=== PATIENT | male | born 1985 | race Caucasian/White ===

== ENCOUNTER 2017-05-27 09:05 | Emergency (ER) | payer BC ==
[~2017-05-27] VITALS: Ht 172.7 cm; Wt 71.5 kg
[~2017-05-27 09:05] MED LIST: AMOX500C3 PO
[2017-05-27 09:11] VITALS: TEMP 36.6; Ht 172.7 cm; Wt 71.5 kg
[2017-05-27] MEDS ORDERED: SODIUM CHLORIDE 0.9% 1000ML 1,000 ML IV STA (09:28)
--- NOTE | 2017-05-27 09:44 | EMERGENCY ROOM VISIT NOTE ---
History First contact with patient: 09:16 Chief Complaint: DIARRHEA Stated Complaint: STOMACH CRAMPS, CHILLS, DIARRHEA History of Present Illness The patient is a 32 year old male who presents to the Emergency Room with complaints of diarrhea and abdominal cramps that started 3 days ago. Patient states initially he had flulike symptoms with chills and shakes, body aches, acute onset of diarrhea. He states diarrhea was initially watery and 2-3 times an hour. He had one episode of vomiting. He states he has been doing better since yesterday with 3-4 episodes of diarrhea per day and it has become more formed. He in fact states that he has been feeling much better since yesterday. Today he had 2 episodes of diarrhea with some frothy pink in it, he was concerned this might be blood, which is what prompted him to come to the ER today. He denies any gross blood in the stool. Patient states he ate out twice on Thursday for lunch and dinner, had ham and shrimp. He denies any recent out of the country travel, drinking unclean water, or recent antibiotics. No known sick contacts. He denies chest pain, shortness of breath , back pain, abdominal pain, dizziness or passing out, dysuria or hematuria. Abdominal cramping only with bowel movements, otherwise no abdominal discomfort. Review of Systems A complete 10 point review of systems was reviewed with the patient with pertinent positives and negatives as per history of present illness. All else were negative. Past Medical/Surgical History Medical Problems: (1) No Known Active Medical Problems Social History Smoking Status: Never Smoker Current/Historical Medications No Active Prescriptions or Reported Meds Allergies Coded Allergies: No Known Allergies (Unverified , 05/27/17) Physical Exam Vital Signs Date Time Temp Pulse Resp B/P (MAP) Pulse Ox O2 Delivery O2 Flow Rate FiO2 05/27/17 11:19 51 123/79 98 05/27/17 10:41 52 117/78 98 05/27/17 09:11 36.6 66 18 128/87 98 Room Air Physical Exam CONSTITUTIONAL: No acute distress. Mildly dehydrated. Well appearing and well nourished. Alert and oriented X 4 with normal affect. HEENT: Normocephalic, atraumatic. Pupils equal, round and reactive to light, EOMI. TMs normal. Pharynx normal. Dry mucous membranes. NECK: Supple, full active range of motion without discomfort. RESPIRATORY: Clear to auscultation bilaterally with no wheezing, crackles, rhonchi or stridor. Equal expansion bilaterally. CARDIOVASCULAR: Regular rate and rhythm with no murmurs, rubs or gallops. Normal peripheral perfusion. No edema. GASTROINTESTINAL: Soft, nontender, nondistended. Bowel sounds present in all quadrants. MUSCULOSKELETAL: Full range of motion of all joints without discomfort. INTEGUMENTARY: No rash or other significant dermatologic conditions noted. NEUROLOGIC: Cranial nerves II-XII grossly intact. No focal neurologic deficits noted. Medical Decision & Procedures Laboratory Results 05/27/17 09:20 Red Blood Count 4.99, Mean Corpuscular Volume 87.4, Mean Corpuscular Hemoglobin 30.7, Mean Corpuscular Hemoglobin Concent 35.1, Mean Platelet Volume 9.1, Neutrophils (%) (Auto) 58.0, Lymphocytes (%) (Auto) 22.1, Monocytes (%) (Auto) 16.4, Eosinophils (%) (Auto) 2.9, Basophils (%) (Auto) 0.5, Neutrophils # (Auto ) 4.63, Lymphocytes # (Auto) 1.76, Monocytes # (Auto) 1.31, Eosinophils # (Auto ) 0.23, Basophils # (Auto) 0.04 05/27/17 09:20 Test 05/27/17 09:20 05/27/17 09:55 White Blood Count 7.98 K/uL (4.8-10.8) Red Blood Count 4.99 M/uL (4.7-6.1) Hemoglobin 15.3 g/dL (14.0-18.0) Hematocrit 43.6 % (42-52) Mean Corpuscular Volume 87.4 fL (80-100) Mean Corpuscular Hemoglobin 30.7 pg (25-34) Mean Corpuscular Hemoglobin Concent 35.1 g/dl (32-36) Platelet Count 209 K/uL (130-400) Mean Platelet Volume 9.1 fL (7.4-10.4) Neutrophils (%) (Auto) 58.0 % Lymphocytes (%) (Auto) 22.1 % Monocytes (%) (Auto) 16.4 % Eosinophils (%) (Auto) 2.9 % Basophils (%) (Auto) 0.5 % Neutrophils # (Auto) 4.63 K/uL (1.4-6.5) Lymphocytes # (Auto) 1.76 K/uL (1.2-3.4) Monocytes # (Auto) 1.31 K/uL (0.11-0.59) Eosinophils # (Auto) 0.23 K/uL (0-0.5) Basophils # (Auto) 0.04 K/uL (0-0.2) RDW Standard Deviation 39.9 fL (36.4-46.3) RDW Coefficient of Variation 12.4 % (11.5-14.5) Immature Granulocyte % (Auto) 0.1 % Immature Granulocyte # (Auto) 0.01 K/uL (0.00-0.02) Anion Gap 5.0 mmol/L (3-11) Est Creatinine Clear Calc Drug Dose 92.4 ml/min Estimated GFR () 101.7 Estimated GFR (Non- 87.7 BUN/Creatinine Ratio 9.8 (10-20) Calcium Level 9.2 mg/dl (8.5-10.1) Total Bilirubin 0.4 mg/dl (0.2-1) Direct Bilirubin 0.1 mg/dl (0-0.2) Aspartate Amino Transf (AST/SGOT) 18 U/L (15-37) Alanine Aminotransferase (ALT/SGPT) 28 U/L (12-78) Alkaline Phosphatase 61 U/L (45-117) Total Protein 7.2 gm/dl (6.4-8.2) Albumin 4.0 gm/dl (3.4-5.0) Lipase 196 U/L (73-393) Urine Color DK YELLOW Urine Appearance CLEAR (CLEAR) Urine pH 6.5 (4.5-7.5) Urine Specific [place] 1.026 (1.000-1.030) Urine Protein NEG (NEG) Urine Glucose (UA) NEG (NEG) Urine Ketones NEG (NEG) Urine Occult Blood NEG (NEG) Urine Nitrite NEG (NEG) Urine Bilirubin NEG (NEG) Urine Urobilinogen NEG (NEG) Urine Leukocyte Esterase NEG (NEG) Medications Administered Medications (Trade) Dose Ordered Sig/[place] Route Start Time Stop Time Status Last Admin Dose Admin Sodium Chloride 1,000 ml @ 999 mls/hr Q1H1M STAT IV 05/27/17 09:28 05/27/17 10:28 DC 05/27/17 09:34 999 MLS/HR Medical Decision CC: Patient presenting with complaint of diarrhea and abdominal cramping Interpretation of Labs: No leukocytosis, no anemia, no significant electrolyte abnormalities, normal renal function, no UTI. Stool studies pending. Differential Diagnosis: Includes, but not limited to gastroenteritis, food poisoning, dehydration, electrolyte abnormality, inflammatory bowel disease, IBS , UTI, among others. Medication Reconciliation: I attest that I have personally reviewed the patient' s current medication list. Vital signs review: I reviewed the patient's vital signs and interpret them as follows: T: Afebrile; BP: Normotensive; HR: WNL; RR: WNL; Pulse Ox: WNL on RA. Blood pressure screening: The patient was found to have normal blood pressure on screening and does not require follow-up for repeat blood pressure check. Summary: Patient was evaluated at bedside, history of physical exam performed. Alert and pleasant, no acute distress. No abdominal tenderness on exam. Pt deferred rectal exam. Stool study sent, no gross blood noted. Orders were placed at bedside for labs, IV fluids to evaluate for dehydration and electrolyte imbalance. Patient discussed with Dr. Watt, who agrees with my assessment and plan. Labs reviewed as above, no acute abnormalities. Patient reassessed multiple times throughout ED stay, he is feeling better after IV fluids, tolerating PO fluids well. Patient and updated on all results and plan for discharge home. He was instructed to follow up with his PCP. He verbalized understanding. Patient was discharged home in stable condition. Impression Primary Impression: Diarrhea Departure Information Dispostion Home / Self-Care Condition GOOD Prescriptions No Active Prescriptions or Reported Meds Referrals No Doctor, Assigned (PCP) Patient Instructions ED Diet [place], ED Food Poison Or Gastroenteritis, My [facility] Additional Instructions You have been treated in the Emergency Department today for Diarrhea and Dehydration. Laboratory results have ruled out any emergent reasons for further evaluation or admission. Your stool studies should result in the next 2-3 days. You will be notified of any abnormal results. It is ESSENTIAL that you maintain adequate hydration with oral fluids! Some suggestions include: - Water is the IDEAL replacement for lost fluids. You should initially sip at the water to help facilitate increased intestinal absorption rate and to decrease the possibility of nausea/vomiting. - Carbohydrate/Electrolyte-Containing Drinks (i.e. Gatorade, Powerade, Pedialyte). All of these are good choices, but it is important to remember that all of these drinks contain a high concentration of sugar. - Popsicles, ice chips, and fruit juices are all other options. - My FAVORITE dehydration remedy is to mix a 1:1 solution of bottled Gatorade with bottled water. This dilution allows for a palatable flavor with added benefit of a reduction in the amount of sugar consumption. You may take Imodium (4 mg) for severe diarrhea. Take one tablet with the first episode of diarrhea, followed by half a tablet for every subsequent episode of diarrhea, no more than 4 tablets in 24 hours. As with all Emergency Department visits, you should follow-up with your Primary Care Provider in 2-3 days for reevaluation. Return to the Emergency Department if your current symptoms worsen despite treatment course outlined above, or if you develop any of the following symptoms : Severe abdominal pain, bright red blood in your stool, vomiting blood, increased thirst, weakness, dizziness, palpitations, confusion, sluggishness, fainting, inability to sweat, or decreased urine output. Problem Qualifiers Primary Impression: Diarrhea Diarrhea type: presumed infectious Qualified Codes: A09 - Infectious gastroenteritis and colitis, unspecified
[2017-05-27 09:53] LABS: BASO % 0.5 %; BASO ABS # 0.04 K/uL (0-0.2); COMPLETE YES; EOS % 2.9 %; HEMATOCRIT 43.6 % (42-52); IG% 0.1 %; LYMPH % 22.1 %; LYMPH ABS # 1.76 K/uL (1.2-3.4); MEAN CELL VOLUME 87.4 fL (80-100); MEAN CORPUSCULAR HEMOGLOBIN 30.7 pg (25-34); MEAN CORPUSCULAR HGB CONC 35.1 g/dl (32-36); MEAN PLATELET VOLUME 9.1 fL (7.4-10.4); MONO % 16.4 %; PLATELET COUNT 209 K/uL (130-400); RED BLOOD COUNT 4.99 M/uL (4.7-6.1); WHITE BLOOD COUNT 7.98 K/uL (4.8-10.8)
[2017-05-27 10:15] LABS: BUN/CREATININE RATIO 9.8 (10-20); CALCIUM 9.2 mg/dl (8.5-10.1); CREATININE 1.1 mg/dl (0.60-1.40); POTASSIUM 3.7 mmol/L (3.5-5.1)
[2017-05-27 10:19] LABS: URINE APPEARANCE CLEAR (CLEAR); URINE BILIRUBIN NEG (NEG); URINE COLOR DK YELLOW; URINE NITRITE NEG (NEG); URINE PH 6.5 (4.5-7.5); URINE SPECIFIC GRAVITY 1.026 (1.000-1.030); UROBILINOGEN NEG (NEG); ZZUR CULT IF INDIC CLEAN CATCH NO
[2017-05-27 10:22] LABS: MANUAL MICROSCOPIC REQUIRED? NO; REVIEW REQ? NO
[2017-05-27 11:19] VITALS: BP 123/79; PULSE 51; O2SAT 98
[2017-06-04 12:31] LABS: O&P SOURCE OTHER-STOOL
== END 2017-05-27 11:20 | disposition home or self-care (01) ==
LOC: C.EDB 09:07
DX: A09 Infectious gastroenteritis and colitis, unspecified (principal); E86.0 Dehydration